=== PATIENT | female | born 1970 | race Two or more races ===

== ENCOUNTER → 2018-10-31 | Outpatient (CLI) | payer BC ==
--- NOTE | 2018-11-04 11:33 | MM ---
Reason for exam: screening (asymptomatic). Last mammogram was performed 3 years and 8 months ago. History: Patient is nulliparous. Physical Findings: A clinical breast exam by your physician is recommended on an annual basis and results should be correlated with mammographic findings. MG 3D Screening Mammo W/Cad Bilateral CC and MLO view(s) were taken. Prior study comparison: March 01, 2015, mammogram, performed at [facility]. October 18, 2009, mammogram, performed at [facility]. There are scattered fibroglandular densities. No suspicious abnormality. No significant changes when compared with prior studies. ASSESSMENT: Negative, BI-RAD 1 RECOMMENDATION: Routine screening mammogram of both breasts in 1 year.
== END | disposition home or self-care (01) ==
LOC: RADMAMWWP 16:01
PROVIDERS: ATTEND Family Medicine
DX: Z12.31 Encounter for screening mammogram for malignant neoplasm of breast (principal)
CPT/HCPCS: 77063; 77067

== ENCOUNTER → 2019-12-22 | Outpatient (CLI) | payer BC ==
[2019-12-22 13:29] VITALS: BP 111/71; PULSE 61; RESP 18; TEMP 98.1
--- NOTE | 2019-12-22 14:29 | P.HPOB ---
History of Present Illness H&P Date: 12/22/19 Chief Complaint: The patient is here for her routine gynecologic exam and ma mmogram. This is a 49-year-old G0 with an LMP of 12/01/2019. The patient is here to establish with this office. It has been about 6 years since her last pelvic exam. She states her menstrual periods have been regular every month since she was in her 40s. She did have a history of PCOS. She is not sexually active at this time. She states over the past 7 months she has had a rare sharp brief l eft lower quadrant pain which occurs less than once a month. She states it does not cause her much problem but she does notice it once in a great while. She wonders if it could be related to her her history of PCOS. Review of Systems She has gained about 10-15 pounds during the past year and she attributes this to or eating habits especially during the pandemic. She has also been under a lot of stress related to her work during the covid pandemic. She denies respiratory problems. Cardiac: She occasionally wakes up with a racing heart and wonders if this is related to increased stress. She denies GI problems. Past Medical History Past Medical History: No Reported History Additional Past Medical History / Comment(s): Overweight. 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 She had a history of PCOS around age 16 with high testosterone levels. History of Any Multi-Drug Resistant Organisms: None Reported Additional Past Surgical History / Comment(s): Oral surgery. Colonoscopy done in 2019(next after 5yr) Past Psychological History: No Psychological Hx Reported Smoking Status: Former smoker Past Alcohol Use History: Rare (2 every 6 months.) Additional Past Alcohol Use History / Comment(s): Quit smoking in 1988. Past Drug Use History: None Reported Additional History: She is single and is not seeing anybody at this time and is not sexually active. 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 - Past Family History Mother Family Medical History: Cancer, Diabetes Mellitus Additional Family Medical History / Comment(s): Skin cancer. Maternal grandmoth er had colon and sinus cancer. Father Family Medical History: Cancer Additional Family Medical History / Comment(s): Skin and renal cancer. Medications and Allergies Home Medications Medication Instructions Recorded Confirmed Type No Known Home Medications 12/22/19 12/22/19 History Allergies Allergy/AdvReac Type Severity Reaction Status Date / Time codeine Allergy Rapid Unverified 12/22/19 13:26 Heart Rate Exam Vital Signs Temp Pulse Resp BP Pulse Ox 12/22/19 13:26 98.1 F 61 18 111/71 97 Intake and Output 12/21/19 12/22/19 12/22/19 22:59 06:59 14:59 Other: Weight 116.12 kg Height 5 feet 5 inches, weight 256 pounds, BMI 42.6. This is a well-developed well-nourished heavyset white female who is alert and oriented times 3 in no acute distress. HEENT: Within normal limits. NECK: Supple without mass or thyromegaly. CHEST AND LUNGS: Clear to auscultation. HEART: Regular rate and rhythm. BREASTS: Are without mass or discharge. AXILLARY EXAM: Negative for adenopathy. BACK: Negative for CVA tenderness. ABDOMEN: Soft, obese, without palpable masses. There is mild suprapubic tenderness and mild left lower quadrant tenderness with deep palpation. There is no rebound tenderness. The rest of the abdomen is nontender. PELVIC EXAM: Normal external genitalia. Cervix and vagina appear normal. There is no cervical motion tenderness. There is no unusual discharge. There is no evidence of prolapse. The uterus is midposition, nongravid size and there is mild suprapubic tenderness with left lower quadrant tenderness. There are no palpable adnexal masses. There is mild mid pelvic and left adnexal tenderness without palpable mass. There are no palpable right adnexal masses or tenderness. RECTAL EXAM: Rectovaginal exam is negative for mass or tenderness and is negative for occult blood. EXTREMITIES: Nontender. IMPRESSION: 1. 49-year-old premenopausal female with infrequent brief sharp left lower quadrant abdominal and left pelvic pains with mild mid pelvic and left adnexal tenderness without palpable mass. 2. History of PCOS. 3. Overweight. PLAN: 1. Pap smear was performed. 2. Self breast awareness was discussed with the patient. 3. Screening mammogram will be done today. 4. I have recommended a pelvic ultrasound be done and the order slip was given to the patient for this. 5. The patient will keep a menstrual calendar and call she's having menstrual problems. 6. Weight control was discussed with the patient. I have stressed the importance of good nutrition, regular meals, adequate fiber and regular exe rcise. 7. She was advised to return in one year for her annual well woman exam and as needed.
--- NOTE | 2019-12-24 12:11 | MM ---
Reason for exam: screening (asymptomatic). Last mammogram was performed 1 year and 2 months ago. History: Patient is nulliparous. Physical Findings: A clinical breast exam by your physician is recommended on an annual basis and results should be correlated with mammographic findings. MG Screening Mammo w CAD Bilateral CC and MLO view(s) were taken. Prior study comparison: October 31, 2018, bilateral MG 3d screening mammo w/cad. March 01, 2015, mammogram, performed at [facility]. The breast tissue is almost entirely fat. No significant changes when compared with prior studies. ASSESSMENT: Benign, BI-RAD 2 RECOMMENDATION: Routine screening mammogram of both breasts in 1 year.
== END | disposition home or self-care (01) ==
LOC: WWCWWP 13:06
PROVIDERS: ATTEND Obstetrics & Gynecology
DX: Z12.31 Encounter for screening mammogram for malignant neoplasm of breast (principal)
CPT/HCPCS: 77067

== ENCOUNTER → 2020-01-01 | Outpatient (CLI) | payer BC ==
--- NOTE | 2020-01-02 15:40 | US ---
EXAMINATION TYPE: US pelvis complete transvag DATE OF EXAM: 01/01/2020 COMPARISON: NONE CLINICAL HISTORY: R10.32,R10,R10.2 Abdominal pain. Patient states having pain during her annual. TECHNIQUE: Transvaginal (TV) and Transabdominal (TA) . Transabdominal sonographic images of the pel vis were acquired. Transvaginal sonographic images were medically necessary to better assess the fol lowing anatomy: Endometrium, Ovaries Date of LMP: 12/24/2019, G0 EXAM MEASUREMENTS: Uterus: 11.7 x 9.4 x 5.3 cm Endometrial Stripe: 0.5 cm 1. Uterus: Anteverted Heterogenous. Multiple lesions seen throughout uterus. Largest on the right = 6.4 x 4.4 x 4.8 cm. Largest midline YOGI= 3.2 x 3.3 x 2.8 cm. Largest on left - 3.2 x 2.7 x 2.3 cm 2. Endometrium: wnl 3. Right Ovary: Obscured by overlying bowel gas 4. Left Ovary: Obscured by overlying bowel gas 5. Bilateral Adnexa: wnl 6. Posterior cul-de-sac: no free fluid IMPRESSION: 1. Bulky heterogenous uterus with multiple uterine fibroids. 2. Nonvisualization of the bilateral ovaries. 3. No pelvic free fluid.
== END | disposition home or self-care (01) ==
LOC: RADUSWWP 15:30
PROVIDERS: ATTEND Obstetrics & Gynecology
DX: D25.9 Leiomyoma of uterus, unspecified (principal); R10.2 Pelvic and perineal pain
CPT/HCPCS: 76830; 76856

== ENCOUNTER → 2022-08-31 | Outpatient (CLI) | payer BC ==
--- NOTE | 2022-09-03 08:29 | MM ---
Reason for Exam: Screening (asymptomatic). Last mammogram was performed 2 year(s) and 9 month(s) ago. Patient History: Menarche at age 8. Patient has no children. Patient used Hormonal Contraceptives for 4 years. Last menstrual period: 08/14/2022 Risk Values: Shannan 5 year model risk: 1.4%. NCI Lifetime model risk: 10.1%. Prior Study Comparison: 03/01/2015 Screening Mammogram, [facility]. 10/31/2018 Bilateral Screening Mammogram, [facility]. 12/22/2019 Bilateral Screening Mammogram, [facility]. Tissue Density: There are scattered fibroglandular densities. Findings: Analyzed By CAD. There is no suspicious group of microcalcifications or new suspicious mass in either breast. Overall Assessment: Negative, BI-RAD 1 Management: Screening Mammogram of both breasts in 1 year. . Patient should continue monthly self-breast exams. A clinical breast exam by your physician is recommended on an annual basis. This exam should not preclude additional follow-up of suspicious palpable abnormalities. Note on Shannan scores and lifetime risk: 1. A Shannan score greater than 3% is considered moderate risk. If this is the case, consider specialist referral to assess eligibility for a risk reducing agent. 2. If overall lifetime risk for the development of breast cancer is 20% or higher, the patient may qualify for future screening with alternating mammogram and breast MRI. Electronically signed and approved by: Fred Pino M.D. Radiologis
== END | disposition home or self-care (01) ==
LOC: RADMAMWWP 13:14
PROVIDERS: ATTEND Family Medicine
DX: Z12.31 Encounter for screening mammogram for malignant neoplasm of breast (principal)
CPT/HCPCS: 77067

== ENCOUNTER → 2023-09-24 | Outpatient (CLI) | payer BC ==
--- NOTE | 2023-09-24 20:38 | US ---
EXAMINATION TYPE: US pelvic complete DATE OF EXAM: 09/24/2023 COMPARISON: 12/31/2021 CLINICAL INDICATION: Female, 53 years old with history of D25.9 LEIOMYOMA OF UTERUS, UNSPECIFIED; AUB - heavy bleeding between menses since june TECHNIQUE: . Transabdominal sonographic images of the pelvis were acquired. Transvaginal sonographi c images were decline by patient and not medically necessary Date of LMP: 1.5 weeks ago EXAM MEASUREMENTS: Uterus: 16.9 x 7.6 x 14.5 cm Endometrial Stripe: 0.4 cm Right Ovary: 3.3 x 2.1 x 3.2 cm Left Ovary: 3.5 x 1.3 x 3.1 cm 1. Uterus: Anteverted Multiple fibroids redemonstrated, largest = 8.2 x 5.1 x 6.3 cm 2. Endometrium: wnl 3. Right Ovary: wnl 4. Left Ovary: wnl 5. Bilateral Adnexa: wnl 6. Posterior cul-de-sac: wnl IMPRESSION: Uterus appears to be enlarged measuring nearly 17 cm with multiple hypoechoic masses mos t typical of uterine fibroids. The largest measures 8.2 cm increased in size from prior exam. Correla te clinically.
--- NOTE | 2023-09-25 12:54 | MM ---
Reason for Exam: Screening (asymptomatic). Last screening mammogram was performed 12 month(s) ago. Patient History: Menarche at age 8. Patient has no children. Premenopausal. Patient used Hormonal Contraceptives for 4 years. Risk Values: Shannan 5 year model risk: 1.4%. NCI Lifetime model risk: 9.9%. Prior Study Comparison: 10/31/2018 Bilateral Screening Mammogram, [facility]. 12/22/2019 Bilateral Screening Mammogram, [facility]. 08/31/2022 Bilateral MG screening mammo w CAD, [facility]. Tissue Density: The breasts are almost entirely fatty. Findings: Analyzed By CAD. Right breast: There is no suspicious group of microcalcifications or new suspicious mass. Left breast: There is no suspicious group of microcalcifications or new suspicious mass. Overall Assessment: Negative, BI-RAD 1 Management: Screening Mammogram of both breasts in [address] [facility] will attempt to contact patient to return for supplemental views and ultrasound if indicated. Patient should continue monthly self-breast exams. A clinical breast exam by your physician is recommended on an annual basis. This exam should not preclude additional follow-up of suspicious palpable abnormalities. Note on Shannan scores and lifetime risk: 1. A Shannan score greater than 3% is considered moderate risk. If this is the case, consider specialist referral to assess eligibility for a risk reducing agent. 2. If overall lifetime risk for the development of breast cancer is 20% or higher, the patient may qualify for future screening with alternating mammogram and breast MRI. Electronically signed and approved by: Ron Royal DO
== END | disposition home or self-care (01) ==
LOC: RADMAMWWP 07:35
PROVIDERS: ATTEND Family Medicine
DX: Z12.31 Encounter for screening mammogram for malignant neoplasm of breast (principal); D25.9 Leiomyoma of uterus, unspecified; Z86.018 Personal history of other benign neoplasm
CPT/HCPCS: 76856; 77067